=== PATIENT | male | born 1965 | race Caucasian/White ===

== ENCOUNTER 2018-01-02 08:38 | Outpatient (CLI) | payer OTHER ==
[~2018-01-02 08:38] MED LIST: GILTUSS TR TAB1 EACH PO; LEVAQUIN500 MG PO; TESSALON PERLE100 M1 PO
== END 2018-01-02 08:48 | disposition home or self-care (01) ==
LOC: RAD 501 08:38
DX: M25.511 Pain in right shoulder (principal); I10 Essential (primary) hypertension; M54.5 Low back pain; B34.9 Viral infection, unspecified; N41.0 Acute prostatitis; Z12.11 Encounter for screening for malignant neoplasm of colon

== ENCOUNTER 2020-08-28 08:16 | Outpatient (CLI) | payer OTHER | END 2020-08-28 08:41 | disposition home or self-care (01) | LOC: OFIC 805 08:16 | PROVIDERS: ATTEND Otolaryngology Otology & Neurotology | DX: D17.0 Benign lipomatous neoplasm of skin and subcutaneous tissue of head, face and neck (principal) ==

== ENCOUNTER 2020-08-31 08:09 | Outpatient (CLI) | payer OTHER | END 2020-08-31 08:24 | disposition home or self-care (01) | LOC: MRI 08:09 | PROVIDERS: ATTEND Otolaryngology Otology & Neurotology | DX: D17.0 Benign lipomatous neoplasm of skin and subcutaneous tissue of head, face and neck (principal) | CPT/HCPCS: 70540 ==

== ENCOUNTER 2020-09-09 08:23 | Outpatient (CLI) | payer OTHER | END 2020-09-09 10:32 | disposition home or self-care (01) | LOC: OFIC 805 08:23 | PROVIDERS: ATTEND Otolaryngology Otology & Neurotology | DX: D17.0 Benign lipomatous neoplasm of skin and subcutaneous tissue of head, face and neck (principal) ==

== ENCOUNTER 2022-12-22 08:05 | Emergency (ER) | payer OTHER ==
[~2022-12-22] VITALS: Ht 180.3 cm; Wt 106.6 kg
[~2022-12-22 08:05] MED LIST changes: +METHOCARBAMOL500 MG PO; +NABUMETONE500 MG PO
[2022-12-22] MEDS ORDERED: EZETIMIBE10 MG PO (08:18)
== END 2022-12-22 11:28 | disposition home or self-care (01) ==
LOC: ER 08:05
DX: J20.9 Acute bronchitis, unspecified (principal); Z20.822 Contact with and (suspected) exposure to COVID-19

== ENCOUNTER 2023-08-14 08:08 | Emergency (ER) | payer OTHER ==
[~2023-08-14] VITALS: Ht 182.9 cm; Wt 111.1 kg
[~2023-08-14 08:08] MED LIST changes: +EZETIMIBE10 MG PO
[2023-08-14] MEDS ORDERED: LEVALBUTEROL HCL 0.63 MG/3 ML SOLUTION IH SCH (08:45)
[2023-08-14 09:33] LABS: HEMATOCRIT 43.5 % (39.0-48.0); HEMOGLOBIN 15.2 g/dL (13-16.00); PLATELET COUNT 251 K/uL (150-450); RED BLOOD COUNT 5.65 M/uL (4.00-6.00); RED CELL DISTRIBUTION WIDTH 13.9 % (11.5-14.5)
== END 2023-08-14 11:08 | disposition home or self-care (01) ==
LOC: ER 08:08
PROVIDERS: Emergency Medicine
DX: J45.909 Unspecified asthma, uncomplicated (principal); E78.00 Pure hypercholesterolemia, unspecified; Z20.822 Contact with and (suspected) exposure to COVID-19